=== PATIENT | female | born 1985 | race Caucasian/White ===

== ENCOUNTER 2025-05-30 18:17 | Emergency (ER) | payer BC, SELFPAY ==
[2025-05-30 18:23] VITALS: BP 140/96
[2025-05-30 19:22] VITALS: BP 140/94
[2025-05-30 19:34] VITALS: BMI 40.2
[2025-05-30 19:57] LABS: Hematocrit 35.9 % (37.0-47.0); Hemoglobin 11.7 g/dL (12.0-16.0); Mean Corp Hgb Conc. 32.6 g/dL (33.0-37.0); Mean Corpuscular Volume 73.6 fL (81.0-99.0); Nucleated Red Blood Cells % 0 %; Platelet Count 231 10^3/uL (130-400); Red Cell Dist. Width 16.8 % (11.5-14.5)
[2025-05-30] MEDS: NSS 1000 IV (20:01)
[2025-05-30] MEDS: TORADOL 15 MG IV (20:01)
--- NOTE | 2025-05-30 20:08 | ED.GENMED ---
History of Present Illness
General
Chief Complaint: Abdominal Pain
Time Seen by Provider: 05/30/25 19:27
History of Present Illness
History of Present Illness:
39-year-old female without significant past medical history presenting to the emergency department for generalized abdominal pain pain. Patient reports it is started few hours prior to arrival. Does note that she did have some nausea and an
episode of vomiting today, as well as some diarrhea. Reports that in the past few months, has had some right lower abdominal pain. She saw her control clerk head, was told that she did have some cysts. However, did not feel that that was the etiology
of her pain so was referred to a GI doctor. She saw GI doctor who scheduled her for a CAT scan, which she has not yet had. Denies fever. Reports surgical history of cholecystectomy and a . Did not have anything for pain prior to
arrival. Notes that the pain is going to her back. Denies urinary complaints. Denies
Phy Exam
Physical Exam
Physical Exam:
General: Well-appearing, no clinical signs of dehydration, nontoxic and in no acute distress
HEENT: protecting airway
Neck: appears supple
CV: Normal heart rate, regular rhythm
Resp: No accessory muscle use, no increased work of breathing, lungs clear to auscultation bilaterally
Abd: Soft and non-distended, generalized nonfocal tenderness, no rebound or guarding
Extremities: No deformities, no swelling
Neuro: alert, no focal neurologic deficit
: deferred
Rectal: deferred
Psych: Normal affect
Skin: Intact
Course
Orders/Labs/Results
Orders:
Orders
05/30/25 18:25
Electrocardiogram (*1) Urgent
Reason for Study: Abdominal Pain
EKG- Treatment ONCE
05/30/25 19:43
Complete Blood Count/With Diff Urgent
Comprehensive Metabolic Panel Urgent
HCG, Serum Qualitative Screen Urgent
Comment: ADD ON
Lipase Urgent
Comment: ADD ON
05/30/25 19:50
Add On- LAB Urgent
Tests Added?: lipase, serum
05/30/25 19:57
CT Abd/pelvis W Iv Cont Urgent
Comment:
Reason For Exam: generalized pain
Ketorolac [Toradol] 15 mg IV NOW STA
05/30/25 19:58
0.9% Sodium Chloride 1000 ml [Nss] 1,000 ml IV BOLUS
05/30/25 20:04
Urinalysis Reflex To Culture Urgent
Date Specimen was Collected: 05/30/25
Time Specimen was Collected: 19:57
05/30/25 20:31
Morphine Sulfate 4 mg IV NOW STA
Abnormal Lab Results
05/30/25
19:43
WBC 15.9 H 10^3/uL
(4.8-10.8)
Hgb 11.7 L g/dL
(12.0-16.0)
Hct 35.9 L %
(37.0-47.0)
MCV 73.6 L fL
(81.0-99.0)
MCH 24.0 L pg
(27.0-31.0)
MCHC 32.6 L g/dL
(33.0-37.0)
RDW 16.8 H %
(11.5-14.5)
Abs Immat Gran (auto) 0.1 H 10^3/uL
(0-0.05)
Absolute Neuts (auto) 13.5 H 10^3/uL
(1.4-6.5)
Absolute Monos (auto) 0.8 H 10^3/uL
(0.1-0.6)
Neutrophils % 84.8 H %
(42.2-75.2)
Lymphocytes % 9.5 L %
(20.5-51.1)
Chloride 109 H mmol/L
(98-107)
05/30/25 19:43
05/30/25 19:43
Vital Signs
Initial and Last Documented VS:
Initial Vital Signs
Temp Pulse Resp BP Pulse Ox
97.9 F 79 18 140/96 100
05/30/25 18:23 05/30/25 18:23 05/30/25 18:23 05/30/25 18:23 05/30/25 18:23
Last Documented Vital Signs
Temp Pulse Resp BP Pulse Ox
97.9 F 77 18 127/78 100
05/30/25 18:23 05/30/25 21:45 05/30/25 21:45 05/30/25 21:01 05/30/25 21:45
MDM/Problems Addressed
MDM/Problems Addressed:
39-year-old female presenting for generalized abdominal pain. Vital signs on arrival are normal.
On exam, patient is in no acute distress, however uncomfortable secondary to pain, tearful. Generalized tenderness to the abdomen without any rebound or guarding. Unclear source of patient's pain. Does note that she feels it more in the upper
abdomen with radiation to her back. However, no gallbladder in place. Will check lipase in the setting of pancreatitis. Bowel pathology is a consideration, such as diverticulitis versus obstruction. Kidney stone is a consideration, however lower
suspicion given bilateral nature. Appendicitis is a consideration, no focal right lower quadrant pain. Plan for laboratory analysis and CT imaging for further assessment. Toradol administered for pain
20:00 - Labs show elevated white count. Starting IV fluids
21:40 -remainder patient's labs and chemistry panel are unremarkable. CT without acute significant pathology. There is evidence of possible fluid levels in the small bowel, consistent with enteritis. Patient does note that she was having some
diarrhea and vomiting earlier today. Suspect possible etiology of patient's pain, gastroenteritis and gas pain. Patient appears more comfortable on reassessment. Ultimately feel safe for discharge with outpatient supportive therapy. Will
prescribe Zofran. Return precautions discussed and patient verbalized understanding
*Pulse Oximetry
SaO2: 97
Oxygen Mode of Delivery: Room air
Patient hypoxic: no
*Critical Care Note
Total Time (30-74mins, 75-104mins- exclusive of procedures): Not Applicable
ED Attending Note
-
Portions of this chart may have been created with voice recognition software.� Occasional wrong word or��sound alike� substitutions may have occurred due to the inherent limitations of voice recognition software.
Discharge Plan
Departure
Patient Disposition: Home (Routine Discharge)
Date of Disposition: 05/30/25
Time of Disposition: 21:44
Patient with high blood pressure during this ER visit?: No
Condition: Good
Discharge Problem:
Gastroenteritis, Abdominal pain
Instructions: Viral gastroenteritis in adults, Abdominal Pain
Prescriptions:
New
ondansetron 4 mg Tablet,Disintegrating
4 mg PO TIDPRN PRN (Reason: nausea/vomiting) Qty: 6 0RF
Referrals:
Petra Gardiner PA-C [Family Provider]
Activity Restrictions/Additional Instructions:
You were seen in the emergency department for abdominal pain.
You were found to have reassuring laboratory analysis and vital signs. Your CT of your abdomen did show evidence of enteritis, which is inflammation to the bowel. We suspect that you have a gastroenteritis. Please continue to drink fluids and
take Zofran as needed for nausea.
Please follow-up closely with your primary care physician.
Return to the emergency department for any worsening of your symptoms, or any development of chest pain, difficulty breathing, abdominal pain with persistent vomiting and inability to tolerate food or liquid by mouth (concern for dehydration),
weakness, headache or confusion, fever greater than 100.4, or any additional symptoms that are concerning to you.
Thank you for choosing [facility].
Interventions
Interventions:
*Risk Screen - Suicide Last Done: 05/30/25 18:23
*General Assessment Last Done: 05/30/25 18:23
*Neglect/Abuse Screening Last Done: 05/30/25 18:23
*ED- Fall Risk Assessment Last Done: 05/30/25 19:35
*ED COVID-19 Vaccine History Last Done: 05/30/25 19:35
*Nursing Disposition Last Done: 05/30/25 21:59
[facility] Assessment Last Done: 05/30/25 19:35
Discharge Date and Time
Discharge Date/Time: 05/30/25 22:00
Print Language: AUSTRIAN
[2025-05-30 20:13] LABS: HCG, Serum Qualitative Screen Negative
[2025-05-30 20:19] LABS: ALT (SGPT) 19 U/L (0-35); AST (SGOT) 19 U/L (14-36); Albumin 4.6 g/dl (3.5-5.0); Alkaline Phosphatase 57 U/L (38-126); Blood Urea Nitrogen 12 mg/dl (7-17); Calcium 9.1 mg/dl (8.4-10.2); Carbon Dioxide 23 mmol/L (22-30); Chloride 109 mmol/L (98-107); Estimated Creatinine Clearance > 125 ml/min; Glucose 90 mg/dl (70-99); Lipase 85 U/L (23-300); Potassium 3.7 mmol/L (3.5-5.1); Sodium 138 mmol/L (135-145); Total Protein 7.3 g/dl (6.3-8.2); eGFR > 60.00
[2025-05-30 20:21] LABS: Urine Character Clear (Clear)
[2025-05-30] MEDS: MORPHINE SULFATE 4 MG IV (20:57)
[2025-05-30 21:01] VITALS: BP 127/78
== END 2025-05-30 22:00 | disposition home or self-care (01) ==
LOC: EMR 18:17
PROVIDERS: EMERGENCY PHYSICIAN Student in an Organized Health Care Education/Training Program; FAMILY PHYSICIAN Physician Assistant
DX: K52.9 Noninfective gastroenteritis and colitis, unspecified (principal); Z90.49 Acquired absence of other specified parts of digestive tract
CPT/HCPCS: 96374; 96375; 96361; 99284; 74177; 80053; 81003; 83690; 84703; 85025; 93005; Q9967